=== PATIENT | male | born 1995 | race Caucasian/White ===

== ENCOUNTER 2016-12-08 20:35 | Emergency (ER) | payer BC, OTHER ==
[2016-12-08 20:50] VITALS: BP 157/93
[2016-12-08] MEDS ORDERED: Lidocaine 2% Viscous Solution 15 ML Cup PO ONE (21:13)
[2016-12-08] MEDS ORDERED: Benzocaine 20% Topical Spray UD MUCMEM ONE (21:13)
--- NOTE | 2016-12-08 21:13 | EDM.PDOC ---
ED HPI GENERAL MEDICAL PROBLEM - General Chief Complaint: ENT Problem Stated Complaint: TOOTH PAIN/INFECTION Time Seen by Provider: 12/08/16 21:08 Source of Information: Reports: Patient History Limitations: Reports: No Limitations - History of Present Illness INITIAL COMMENTS - FREE TEXT/NARRATIVE: HISTORY AND PHYSICAL: History of present illness: Patient is a 21-year-old male that presents to the emergency room with complaints of dental pain. It's that on Thursday he noticed his wisdom tooth coming in to the upper right exterior jawline. States he was unable to get ahold of the dentist but does have established care with a dentist at [facility]. Has been using [id number] ibuprofen with minimal relief. Denies any fever, chills, ear or throat pain. Denies any chest pain, shortness of breath, nausea or vomiting. Review of systems: As per history of present illness and below otherwise all systems reviewed and negative. Past medical history: As per history of present illness and as reviewed below otherwise noncontributory. Surgical history: As per history of present illness and as reviewed below otherwise noncontributory. Social history: No reported history of drug or alcohol abuse. Family history: As per history of present illness and as reviewed below otherwise noncontributory. Physical exam: HEENT: Atraumatic, normocephalic, pupils reactive, negative for conjunctival pallor or scleral icterus, mucous membranes moist, throat clear, neck supple, nontender, trachea midline. Erythema and swelling noted to tooth #1 through 3. Otherwise good dental hygiene. Lungs: Clear to auscultation, breath sounds equal bilaterally, chest nontender. Heart: S1S2, regular rate and rhythm Abdomen: Soft, nondistended, nontender. Pelvis: Stable nontender. Genitourinary: Deferred. Rectal: Deferred. Extremities: Atraumatic. Neurovascular unremarkable. Neuro: Awake, alert, oriented. Cranial nerves II through XII unremarkable. Cerebellum unremarkable. Motor and sensory unremarkable throughout. Exam nonfocal. Diagnostics: [] Therapeutics: Dental balls Impression: Dental abscess Definitive disposition and diagnosis as appropriate pending reevaluation and review of above. Onset Date: 12/05/16 Right Upper Oral/Mouth Pain Score (Numeric/FACES): 8 - Related Data Allergies Allergy/AdvReac Type Severity Reaction Status Date / Time No Known Allergies Allergy Verified 10/10/13 16:39 Home Meds: Home Meds . [No Known Home Meds] 10/10/13 [History] Past Medical History - Past Health History Medical/Surgical History: Denies Medical/Surgical History - Infectious Disease History Infectious Disease History: Reports: Chicken Pox Social & Family History - Family History Cardiac: Reports: ND - Tobacco Use Smoking Status *Q: Never Smoker Second Hand Smoke Exposure: No - Caffeine Use Caffeine Use: Reports: None - Alcohol Use Days Per Week of Alcohol Use: 0 - Recreational Drug Use Recreational Drug Use: No ED ROS ENT - Review of Systems Review Of Systems: See Below ED EXAM, ENT - Physical Exam Exam: See Below (See dictation) Course - Vital Signs Last Recorded V/S: Last Vital Signs Temp 36.4 C 12/08/16 20:46 Pulse 58 L 12/08/16 20:46 Resp 14 12/08/16 20:46 BP 157/93 H 12/08/16 20:46 Pulse Ox 100 12/08/16 20:46 - Orders/Labs/Meds Orders: Active Orders 24 hr Category Date Time Status Benzocaine [Hurricaine One 20%] Med 12/08/16 21:13 Once 2 each MUCMEM ONETIME ONE Lidocaine 2% [Xylocaine 2% Viscous] Med 12/08/16 21:13 Once 15 ml PO ONETIME ONE Medication Orders Benzocaine (Hurricaine One 20%) 2 each MUCMEM ONETIME ONE Stop: 12/08/16 21:14 Lidocaine HCl (Xylocaine 2% Viscous) 15 ml PO ONETIME ONE Stop: 12/08/16 21:14 Meds: Medications Generic Name Dose Route Start Last Admin Trade Name Freq PRN Reason Stop Dose Admin Benzocaine 2 each 12/08/16 21:13 Hurricaine One 20% MUCMEM 12/08/16 21:14 ONETIME ONE Lidocaine HCl 15 ml 12/08/16 21:13 Xylocaine 2% Viscous PO 12/08/16 21:14 ONETIME ONE Departure - Departure Time of Disposition: 21:11 Disposition: Home, Self-Care 01 Clinical Impression: Dental abscess - Discharge Information Referrals: PCP,None [Primary Care Provider] - Forms: ED Department Discharge Additional Instructions: The following information is given to patients seen in the emergency department who are being discharged to home. This information is to outline your options for follow-up care. We provide all patients seen in our emergency department with a follow-up referral. The need for follow-up, as well as the timing and circumstances, are variable depending upon the specifics of your emergency department visit. If you don't have a primary care physician on staff, we will provide you with a referral. We always advise you to contact your personal physician following an emergency department visit to inform them of the circumstance of the visit and for follow-up with them and/or the need for any referrals to a consulting specialist. The emergency department will also refer you to a specialist when appropriate. This referral assures that you have the opportunity for followup care with a specialist. All of these measure are taken in an effort to provide you with optimal care, which includes your followup. Under all circumstances we always encourage you to contact your private physician who remains a resource for coordinating your care. When calling for followup care, please make the office aware that this follow-up is from your recent emergency room visit. If for any reason you are refused follow-up, please contact the [facility] emergency department at and asked to speak to the emergency department charge nurse. [facility] [address] [place] [address] 1. Please take antibiotic as prescribed. May use gentle balls as needed for discomfort. Do not swallow those. Use Tylenol and/or ibuprofen [id number] as needed. 2. Please follow-up with the dentist as discussed. Return to ED as needed as discussed - My Orders Last 24 Hours: My Active Orders 12/08/16 21:13 Benzocaine [Hurricaine One 20%] 2 each MUCMEM ONETIME ONE Lidocaine 2% [Xylocaine 2% Viscous] 15 ml PO ONETIME ONE - Assessment/Plan Last 24 Hours: My Active Orders 12/08/16 21:13 Benzocaine [Hurricaine One 20%] 2 each MUCMEM ONETIME ONE Lidocaine 2% [Xylocaine 2% Viscous] 15 ml PO ONETIME ONE
== END 2016-12-08 21:40 | disposition home or self-care (01) ==
LOC: MW.ED 20:35
DX: K04.7 Periapical abscess without sinus (principal)
CPT/HCPCS: 99282